=== PATIENT | male | born 1950 | race Asian ===

== ENCOUNTER 2020-09-07 23:46 | Emergency (ER) | payer MEDICARE, MEDICAID, SELFPAY ==
[~2020-09-07] VITALS: Ht 172.7 cm; Wt 132.9 kg
[2020-09-07 23:54] VITALS: Ht 172.7 cm; Wt 132.9 kg
[2020-09-08 01:02] LABS: BASOPHIL % 0.1 % (0-2); PLATELET COUNT 252 x10^3mcL (130-400)
[2020-09-08 01:05] LABS: CALCIUM 8.5 mg/dL (8.5-10.1); CARBON DIOXIDE 25.4 mmol/L (21-32); CHLORIDE SERUM 104 mmol/L (98-107); CREATININE SERUM 0.9 mg/dL (0.7-1.3); GLUCOSE SERUM 118 mg/dL (74-106); POTASSIUM SERUM 3.1 mmol/L (3.5-5.1); SODIUM SERUM 139 mmol/L (136-145)
[2020-09-08 01:09] LABS: ALBUMIN 3.3 g/dL (3.4-5.0); ALKALINE PHOSPHATASE 75 U/L (46-116); ALT/SGPT 19 U/L (16-63); AST/SGOT 14 U/L (15-37); BILIRUBIN TOTAL 1.84 mg/dL (0.20-1.00); C REACTIVE PROTEIN 7.4 mg/dL (<=0.9); LACTIC DEHYDROGENASE (LDH) 167 U/L (100-190)
[2020-09-08 03:06] LABS: UA SPECIFIC GRAVITY >=1.030 (1.005-1.035); microscopic required? YES; urine erythrocyte 2+ (NEGATIVE)
[2020-09-08 05:45] VITALS: BP 108/63
== END 2020-09-08 05:45 | disposition home or self-care (01) ==
LOC: ED 23:46
PROVIDERS: Emergency Medicine
DX: N39.0 Urinary tract infection, site not specified (principal); I10 Essential (primary) hypertension; Z20.828 Contact with and (suspected) exposure to other viral communicable diseases
CPT/HCPCS: 36600; 83880; 85378; 87804; J0696; J7060; Q0092; Q9967; U0003